=== PATIENT | female | born 1975 | race Caucasian/White ===

== ENCOUNTER 2017-11-20 05:03 | Day surgery (SDC) | payer BC, OTHER ==
[2017-11-13 11:58] VITALS: BMI 34.7
[2017-11-20] MEDS ORDERED: oxyCODONE HCL 5 MG TABLET PO PRN ×2 (17:23→18:28)
[2017-11-20] MEDS ORDERED: IBUPROFEN 400 MG TABLET (FP) PO PRN (17:23)
[2017-11-20] MEDS ORDERED: ACETAMINOPHEN 325 MG TABLET (FP) PO PRN (17:23)
--- NOTE | 2017-11-20 17:23 | HP ---
Admitting History and Physical - Admission History of Present Illness: 42 yo with history of irregular menses and menorrhagia for endometrial ablation. Limitations to Obtaining History: No Limitations - Past Medical History Cardiovascular: No: HTN Pulmonary: No: Asthma Gastrointestinal: Yes: GERD ...LMP: 10/26/17 ...: No Heme/Onc: No: Anemia Additional Past Medical History: Borderline Hyperlipidema Eczema - Past Surgical History Past Surgical History: Yes: Additional Past Surgical History: L ACL Repair - Smoking History Smoking history: Current every day smoker Have you smoked in the past 12 months: No Aproximately how many cigarettes per day: 15 - Alcohol/Substance Use Hx Alcohol Use: Yes (socially) History of Substance Use: reports: None - Social History Usual Living Arrangement: Yes: With Spouse History of Recent Travel: Yes ([place]) Home Medications - Allergies Allergies/Adverse Reactions: Allergies Allergy/AdvReac Type Severity Reaction Status Date / Time No Known Drug Allergies Allergy Verified 11/13/17 11:57 seasonal Allergy Mild Itching Uncoded 11/13/17 11:57 - Home Medications Home Medications: Ambulatory Orders Esomeprazole Magnesium [Nexium 24Hr] 20 mg PO DAILY 11/13/17 Family Disease History - Family Disease History Family History: Unremarkable Review of Systems - Review of Systems Constitutional: reports: No Symptoms Neck: reports: No Symptoms Cardiovascular: reports: No Symptoms Respiratory: reports: No Symptoms Genitourinary: reports: No Symptoms Breasts: reports: No Symptoms Reported Musculoskeletal: reports: No Symptoms Neurological: reports: No Symptoms Endocrine: reports: No Symptoms Hematology/Lymphatic: reports: No Symptoms Psychiatric: reports: No Symptoms Physical Examination Vital Signs: Vital Signs Temperature 98.7 F 11/20/17 15:12 Pulse Rate 84 11/20/17 15:12 Respiratory Rate 18 11/20/17 15:12 Blood Pressure 123/61 11/20/17 15:12 O2 Sat by Pulse Oximetry (%) 99 11/20/17 15:12 Constitutional: Yes: Well Nourished, No Distress, Calm Cardiovascular: Yes: Regular Rate and Rhythm Respiratory: Yes: Regular, CTA Bilaterally Gastrointestinal: Yes: Normal Bowel Sounds, Soft Extremities: Yes: WNL Psychiatric: Yes: Alert, Oriented Labs: Endometrial biopsy 10/22/17 ([facility]) - benign secretory endometrium Assessment/Plan 42 yo hx/o irregular menses and menorrhagia for endometrial ablation 1. Consents reviewed and signed. Discussed risks including but not limited to infection, bleeding, uterine perforation needing laparoscopy or laparotomy Reviewed 70-80% improvement in uterine bleeding which may include amenorrhea Patient expressed understanding and gives verbal consent to procedure 2. Preop labs reviewed 3. SCDs for DVT Prophylaxis 4. Will proceed to OR
[2017-11-20] MEDS ORDERED: DEXAMETHASONE SOD PHOSPHATE 4 MG/1 ML VIAL ONE (17:27)
[2017-11-20] MEDS ORDERED: MIDAZOLAM HCL 2 MG/2 ML SINGLE DOSE VIAL ONE (17:27)
[2017-11-20] MEDS ORDERED: PROPOFOL 20 ML ONE (17:33)
[2017-11-20] MEDS ORDERED: SUCCINYLCHOLINE CHLORIDE 200 MG/10 ML VIAL ONE (17:33)
[2017-11-20] MEDS ORDERED: ceFAZolin SODIUM 1 GM VIAL ONE (17:41)
[2017-11-20] MEDS ORDERED: ceFAZolin SODIUM 1 GM VIAL IVPB ONE (17:44)
--- NOTE | 2017-11-20 18:24 | OP ---
Operative Note - Note: Operative Date: 11/20/17 Pre-Operative Diagnosis: menorrhagia, irregular bleeding Operation: hydrotherm ablation Findings: uterus, sounded to 8 cm, bilateral ostia identified Post-Operative Diagnosis: Same as Pre-op Surgeon: Clementina Clayton Resource Forester: Robert Lui Anesthesiologist/CONCRETE BOOM OPERATOR: Jori Zaldivar Anesthesia: General Estimated Blood Loss (mls): 1 Fluid Volume Replaced (mls): 900 Operative Report Dictated: Yes
[2017-11-20] MEDS ORDERED: ONDANSETRON 4 MG/2 ML VIAL IVPUSH PRN (18:28)
[2017-11-20] MEDS ORDERED: PROMETHAZINE HCL 25 MG/1 ML VIAL IVPUSH PRN (18:28)
[2017-11-20] MEDS ORDERED: LACTATED RINGERS SOLUTION 1,000 ML IV SCH (18:30)
[2017-11-20] MEDS ORDERED: oxyCODONE HCL 5 MG TABLET ONE ×2 (19:17→20:24)
[2017-11-20] MEDS ORDERED: ONDANSETRON 4 MG/2 ML VIAL ONE (19:23)
--- NOTE | 2017-11-20 19:59 | OP ---
DATE OF OPERATION: 11/20/2017 ATTENDING PHYSICIAN RESPONSIBLE FOR SIGNING REPORT: Clementina Clayton MD PREOPERATIVE DIAGNOSES: Irregular bleeding, menorrhagia. POSTOPERATIVE DIAGNOSES: Irregular bleeding, menorrhagia. SURGERY: Dilation of cervix and [employer] hydrotherm ablation. SURGEON: Clementina Clayton MD ASSIST: Robert Lui MD ANESTHESIOLOGIST: Jori Zaldivar MD ANESTHESIA: General. ESTIMATED BLOOD LOSS: 1 mL FLUIDS GIVEN: 900. URINE OUTPUT: Not recorded. INDICATION: Patient is a 42-year-old, 2, para 2 with history of menorrhagia, irregular bleeding, who desired an endometrial ablation. She was counseled regarding risks, benefits, alternatives, and complications of procedure and was brought to the operating room. When anesthesia was found to be adequate, patient was prepped and draped in normal sterile fashion, placed in the dorsal lithotomy position using Jerad stirrups. A weighted speculum was placed in the patient's vagina. The anterior lip of the cervix was grasped using an Allis clamp. The cervix was dilated to accommodate a size 27 Hanks uterine dilator. The hydrothermal ablation system scope was placed in the cervix with visualization of bilateral ostia. Good seal was affirmed, and the machine was activated. Under direct visualization, endometrial ablation was performed. No leaks were noted throughout the procedure. The machine underwent cooling cycle, and instrument was removed from the patient's vagina. Examination of vagina and cervix revealed no leakage or dela cruz noted. All instruments were removed from the patient's vagina. The patient was awoke from anesthesia and brought to the recovery room in stable condition. Onofre [id number] MTDD
[2017-11-20 20:25] VITALS: TEMP 98.6
[2017-11-20 21:02] VITALS: BP 144/75; PULSE 60
== END 2017-11-20 20:45 | disposition home or self-care (01) ==
LOC: JASU-SURG 05:03
PROVIDERS: ATTEND Obstetrics & Gynecology
PROC: 0U5B8ZZ Destruction of Endometrium, Via Natural or Artificial Opening Endoscopic (ICD-10-PCS; principal; 2017-11-20 16:00)
PROC: 0UDB8ZX Extraction of Endometrium, Via Natural or Artificial Opening Endoscopic, Diagnostic (ICD-10-PCS; 2017-11-20 16:00)
DX: N92.0 Excessive and frequent menstruation with regular cycle (principal)
CPT/HCPCS: 36415; 84703; 86850; 86900; 86901; 94760

== ENCOUNTER 2023-12-22 20:16 | Emergency (ER) | payer BC ==
[2023-12-22 20:21] VITALS: BP 150/84; PULSE 92; RESP 16; TEMP 98.6; BMI 34.3
[2023-12-22] MEDS ORDERED: SULFAMETHOXAZOLE/TRIMETHOPRIM 800MG/160MG D.S. TABLET ONE (21:02)
[2023-12-22] MEDS: SULFAMETHOXAZOLE/TRIMETHOPRIM 800MG/160MG D.S. TABLET PO ONE (21:07)
[2023-12-22] MEDS: FLUCONAZOLE 150 MG TABLET PO ONE (22:01)
== END 2023-12-22 21:44 | disposition home or self-care (01) ==
LOC: JERFT 20:16
DX: N61.1 Abscess of the breast and nipple (principal); M25.532 Pain in left wrist
CPT/HCPCS: 93005; 93010; 99283-25